=== PATIENT | female | born 1965 | race Caucasian/White ===

== ENCOUNTER 2018-02-23 03:39 | Emergency (ER) | payer BC ==
[~2018-02-23] VITALS: Ht 165.1 cm; Wt 71.7 kg
[~2018-02-23 03:39] MED LIST: CREON PO; CYCLOBENZAPRINE10 MG ORAL; GUAIFENESIN-CO118 M1 ORAL; LEVAQUIN750 MG ORAL; MEDROL DOSEPAK4 MG ORAL; NAPROXEN500 M2 ORAL; PERCOCET 5-3251 EACH ORAL; PREDNISONE20 MG ORAL; RANITIDINE HCL150 MG ORAL; VENTOLIN HFA18 GM INH
[2018-02-23 03:50] VITALS: BP 156/91
[2018-02-23] MEDS ORDERED: Norco 5mg/325mg tab ORAL ONE (04:00)
[2018-02-23] MEDS ORDERED: NORCO 5-325 TA1 EACH ORAL ×2 (04:05→09:59)
--- NOTE | 2018-02-23 04:05 | Emergency Room Report ---
History of Present Illness General Chief Complaint: Toothache Source: Patient Present Illness HPI 52F with three days right lower toothache, very severe tonight. She does have a dentist with whom she can follow. No trauma, no fever. Allergies: Coded Allergies: PROCHLORPERAZINE (Verified Allergy, Severe, Anaphylaxis, 01/22/13) VANCOMYCIN (Verified Allergy, Severe, LOSS OF HEARING IN 1 EAR, 01/22/13) Patient History Last Menstrual Period: n/a Nursing Documentation-[facility] Past Medical History: No History, Except For Hx Cardiac Problems: Yes - IRREGULAR HEARTBEAT, herniated disc Hx Hypertension: No Hx Pacemaker: No Hx Asthma: Yes Hx COPD: No Hx Diabetes: No Hx Cancer: No Hx Gastrointestinal Problems: Yes - CHRONIC PANCREATITIS Hx Dialysis: No Hx Neurological Problems: No Hx Cerebrovascular Accident: No Hx Seizures: No Review of Systems Constitutional: Reports: no symptoms Eye: Reports: no symptoms ENT: Reports: see HPI, mouth pain Respiratory: Reports: no symptoms Cardiovascular: Reports: no symptoms Gastrointestinal: Reports: no symptoms Genitourinary: Reports: no symptoms Musculoskeletal: Reports: no symptoms Skin: Reports: no symptoms Psychiatric: Reports: no symptoms Neurological: Reports: no symptoms Endocrine: Reports: no symptoms Hematologic/Lymphatic: Reports: no symptoms Allergic: Reports: no symptoms All Other Systems: negative except mentioned in HPI Physical Exam Vital Signs Date Time Temp Pulse Resp B/P (MAP) Pulse Ox O2 Delivery O2 Flow Rate FiO2 02/23/18 03:48 98.2 75 18 156/91 100 Room Air Sp02 EP Interpretation: reviewed, normal General Appearance: normal inspection, well appearing, no apparent distress, alert, GCS 15, non-toxic Head: normocephalic, atraumatic Eyes: bilateral eye normal inspection, bilateral eye PERRL, bilateral eye EOMI ENT: normal ENT inspection, hearing grossly normal, normal pharynx, no angioedema, normal voice, moist mucus membranes, other - TTP tooth 32 (crown) no erythema/swelling Neck: normal inspection, full range of motion, supple, no meningismus, no bony tend Respiratory: normal inspection, lungs clear, normal breath sounds, no rhonchi, no respiratory distress, no retraction, no accessory muscle use, no wheezing Cardiovascular #1: normal inspection, regular rate, rhythm, no edema Gastrointestinal: normal inspection, normal bowel sounds, non tender, soft, no mass, non-distended Musculoskeletal: gait/station normal, normal range of motion Neurologic: normal inspection, alert, oriented x3, responsive, motor strength/ tone normal Psychiatric: normal inspection, judgement/insight normal, memory normal Suicide Risk Assessment: Suicidal Ideation: No Had intent to initiate attempt: No Pt's plan for suicide attempt: No Has means to complete attempt: No Skin: normal inspection, normal color, no rash, warm/dry Medical Decision Making Diagnostic Impression: Primary Impression: Toothache ER Course norco exquisite tenderness to palpation; infection not the problem, probably dying root Last Vital Signs Date Time Temp Pulse Resp B/P (MAP) Pulse Ox O2 Delivery O2 Flow Rate FiO2 02/23/18 03:48 98.2 75 18 156/91 100 Room Air Disposition: HOME, SELF-CARE Condition: Improved Scripts Hydrocodone Bit/Acetaminophen 5-325* (NORCO 5-325*) 1 Each Tablet 1 TAB ORAL Q6H PRN for For Pain, #20 TAB 0 Refills Prov: Lawrence Cevallos M.D. 02/23/18 Patient Instructions: Dental Pain Lawrence Cevallos M.D. Feb 23, 2018 04:05
[2018-02-23 04:16] VITALS: BP 156/91
== END 2018-02-23 04:16 | disposition home or self-care (01) ==
LOC: EMR 04:11
DX: K08.89 Other specified disorders of teeth and supporting structures (principal); J45.909 Unspecified asthma, uncomplicated; Z88.1 Allergy status to other antibiotic agents; Z88.8 Allergy status to other drugs, medicaments and biological substances
CPT/HCPCS: 99282

== ENCOUNTER 2018-09-07 12:41 | Emergency (ER) | payer BC, OTHER ==
[~2018-09-07] VITALS: Ht 165.1 cm; Wt 73.5 kg
[~2018-09-07 12:41] MED LIST changes: +NORCO 5-325 TA1 EACH ORAL
--- NOTE | 2018-09-07 12:54 | NUR ---
ED Nurse Note: Pt came in from home c/o allergic rx hives since yesterday. Unknown trigger. AOx4, VSS. No SOB/swollen tongue/swollen throat. Will cont to monitor.
[2018-09-07 12:57] VITALS: BP 132/89
[2018-09-07] MEDS ORDERED: Dexamethasone 4mg/ml vial IM ONE (13:00)
--- NOTE | 2018-09-07 13:28 | Emergency Room Report ---
History of Present Illness General Chief Complaint: Skin Rash/Abscess Source: Patient Present Illness HPI 52-year-old female with history of chronic back pain here complaining of 1 day of severe pruritus all over her body that started in the left leg and now spreading rash. Patient has been taking Benadryl and also Ativan with minimal relief. Patient reports that she saw a spider next to her. Complains of pain at the site of the bite. Denies fever and chills. Also is requesting Sidnaw 10 mg for her chronic back pain as she is switching doctors and does not have pain management she also reports that she is been taking her 's Sidnaw's and her is there with her and complaining that her his Sidnaw was running out. Drug-seeking behavior is observed. Patient even asks that you want me to do coming back here and requests Sidnaw. Denies nausea vomiting, anaphylaxis, shortness of breath, chest pain, palpitation, dizziness, no other associated symptoms. Denies recent exposure to new allergens, animals, new food, or any new medication Allergies: Coded Allergies: PROCHLORPERAZINE (Verified Allergy, Severe, Anaphylaxis, 01/22/13) VANCOMYCIN (Verified Allergy, Severe, LOSS OF HEARING IN 1 EAR, 01/22/13) Patient History Past Medical History: see triage record Past Surgical History: unable to obtain Pertinent Family History: none Now: No Immunizations: UTD Reviewed Nursing Documentation: PMH: Agreed; PSxH: Agreed Nursing Documentation-PMH Past Medical History: No History, Except For Hx Cardiac Problems: Yes - IRREGULAR HEARTBEAT, herniated disc Hx Hypertension: No Hx Pacemaker: No Hx Asthma: Yes Hx COPD: No Hx Diabetes: No Hx Cancer: No Hx Gastrointestinal Problems: Yes - CHRONIC PANCREATITIS Hx Dialysis: No Hx Neurological Problems: No Hx Cerebrovascular Accident: No Hx Seizures: No Review of Systems All Other Systems: negative except mentioned in HPI Physical Exam Vital Signs Date Time Temp Pulse Resp B/P (MAP) Pulse Ox O2 Delivery O2 Flow Rate FiO2 09/07/18 12:44 98.1 88 18 143/93 (110) 98 Room Air Sp02 EP Interpretation: reviewed, normal General Appearance: normal inspection, well appearing, no apparent distress Head: normocephalic, atraumatic Eyes: bilateral eye normal inspection, bilateral eye PERRL ENT: normal ENT inspection, hearing grossly normal, normal pharynx Neck: normal inspection, full range of motion, supple, thyroid normal, no carotid bruits Respiratory: normal inspection, lungs clear, no respiratory distress, no wheezing Cardiovascular #1: normal inspection, regular rate, rhythm, no edema, no murmur , normal capillary refill Gastrointestinal: normal inspection, non tender Rectal: deferred Genitourinary: no CVA tenderness Musculoskeletal: normal inspection, back normal, digits/nails normal Neurologic: normal inspection, alert, oriented x3 Psychiatric: normal inspection, judgement/insight normal, memory normal Skin: warm/dry, rash - Insect bite inflamed and warm to touch left inner thigh annular to cardia on both legs and abdomen Lymphatic: normal inspection, no adenopathy, axilla node tender (R) Medical Decision Making PA Attestation All my diagnosis and treatment plans were reviewed ad discussed with my supervising physician Dr. Tony Diagnostic Impression: Primary Impression: Allergic reaction, urticaria Additional Impressions: Insect bite, infected Cellulitis ER Course 52-year-old female with history of chronic back pain here complaining of 1 day of severe pruritus all over her body that started in the left leg and now spreading rash. Patient has been taking Benadryl and also Ativan with minimal relief. Patient reports that she saw a spider next to her. Complains of pain at the site of the bite. Denies fever and chills. Also is requesting Sidnaw 10 mg for her chronic back pain as she is switching doctors and does not have pain management she also reports that she is been taking her 's Sidnaw's and her is there with her and complaining that her his Sidnaw was running out. Drug-seeking behavior is observed. Patient even asks that you want me to do coming back here and requests Sidnaw. Denies nausea vomiting, anaphylaxis, shortness of breath, chest pain, palpitation, dizziness, no other associated symptoms. Denies recent exposure to new allergens, animals, new food, or any new medication Ddx considered but are not limited to: Eczema, scabies, lice, infected insect bite, allergic urticaria, chronic back pain Vital signs: are WNL, pt. is afebrile H&PE are most consistent with: Allergic urticaria due to an infected insect bite , chronic back pain ORDERS: Dexamethasone 10 mg IM, prednisone, Keflex, hydrocortisone cream, Tylenol 3 ED INTERVENTIONS: Dexamethasone 10 mg IM DISCHARGE: At this time pt. is stable for d/c to home. Will provide printed patient care instructions, and any necessary prescriptions. Care plan and follow up instructions have been discussed with the patient prior to discharge. I told the patient that I will not be writing for Sidnaw as this is a chronic condition and she is asking for specific medication specific dosing and raising her voice when I say that we cannot write that however I will give her Tylenol 3 also her keeps intervening and yelling with her. She is to follow-up with a primary care provider and pain management and advised her not to take somebody else's medications Last Vital Signs Date Time Temp Pulse Resp B/P (MAP) Pulse Ox O2 Delivery O2 Flow Rate FiO2 09/07/18 12:57 98.1 89 18 132/89 100 Room Air Disposition: HOME, SELF-CARE Condition: Stable Scripts Acetaminophen With Codeine (T#3) (TYLENOL #3 TAB*) Y Tab 1 TAB ORAL Q8HR PRN for For Pain for 3 Days, #10 TAB Prov: David Schaeffer 09/07/18 Hydrocortisone/Aloe Vera 1%* (HYDROCORTISONE-ALOE 1% CREAM*) Y Cr 1 APPLIC TOPIC Q6H PRN for Itching, #30 GM Prov: David Schaeffer 09/07/18 Prednisone (Prednisone) 20 Mg Tablet 20 MG PO BID for 5 Days, #10 TAB Prov: David Schaeffer 09/07/18 Cephalexin* (KEFLEX*) 500 Mg Capsule 500 MG ORAL EVERY 6 HOURS for 7 Days, #28 CAP Prov: David Schaeffer 09/07/18 Referrals: NON PHYSICIAN (PCP) Patient Instructions: Allergies, [id number], Cellulitis, [id number], Insect Bite, [id number] Additional Instructions: Take medication as directed follow-up with a primary care provider for further assessment and allergy testing wash all clothes and bedding David Schaeffer Sep 07, 2018 13:28
[2018-09-07] MEDS ORDERED: CEPHALEXIN500 MG ORAL (13:29)
[2018-09-07] MEDS ORDERED: HYDROCORTISONE-30 GM TOPIC (13:29)
[2018-09-07] MEDS ORDERED: PREDNISONE20 M1 PO (13:29)
[2018-09-07] MEDS ORDERED: ACETAMINOPHEN-1 EAC1 ORAL (13:42)
[2018-09-07 13:47] VITALS: BP 132/85
--- NOTE | 2018-09-07 13:47 | NUR ---
ER DISCHARGE Patient is cleared to be discharged per PA, pt is aox4, on room air, with stable vital signs. pt was given dc and prescription instructions, pt was able to verbalize understanding, pt id band removed. pt is able to ambulate with steady gait. pt took all belongings a nd left with her family member.
== END 2018-09-07 13:47 | disposition home or self-care (01) ==
LOC: EMR 12:58
DX: T78.40XA Allergy, unspecified, initial encounter (principal); X58.XXXA Exposure to other specified factors, initial encounter; L50.9 Urticaria, unspecified; L03.90 Cellulitis, unspecified; S70.362A Insect bite (nonvenomous), left thigh, initial encounter; S80.862A Insect bite (nonvenomous), left lower leg, initial encounter; S80.861A Insect bite (nonvenomous), right lower leg, initial encounter; S30.861A Insect bite (nonvenomous) of abdominal wall, initial encounter; W57.XXXA Bitten or stung by nonvenomous insect and other nonvenomous arthropods, initial encounter; Y92.9 Unspecified place or not applicable; Z88.8 Allergy status to other drugs, medicaments and biological substances
CPT/HCPCS: 96372; 99283; J1100

== ENCOUNTER 2019-05-20 19:52 | Emergency (ER) | payer OTHER ==
[~2019-05-20] VITALS: Ht 162.6 cm; Wt 77.1 kg
[~2019-05-20 19:52] MED LIST changes: +ACETAMINOPHEN-1 EAC1 ORAL; +CEPHALEXIN500 MG ORAL; +HYDROCORTISONE-30 GM TOPIC; +PREDNISONE20 M1 PO
--- NOTE | 2019-05-20 19:59 | NUR ---
ED Nurse Note: PT WALKED IN TO ED ACCOMPANIED BY FAMILY C/O ABD PAIN AND BACK PAIN X2DAYS WITH HX CHRONIC PANCREATITS. PATIENT RATES PAIN 7/10 SHARP AND STABBING. PT BP IS ELEVATED BUT OTHERWISE VSS, NAD. ERMD AT BEDSIDE. WILL CONTINUE TO MONITOR PATIENT
--- NOTE | 2019-05-20 20:00 | NUR ---
ED Nurse Note: blood and urine collected and sent to lab.
[2019-05-20] MEDS ORDERED: Morphine Sulfate 4mg/ml Inj (IV USE ONLY) IVP ONE (20:15)
--- NOTE | 2019-05-20 20:53 | Emergency Room Report ---
History of Present Illness General Chief Complaint: Abdominal Pain Source: Patient Present Illness HPI 53-year-old female presents ED for evaluation of abdominal pain. Complaining of pain which started 2 days ago. Epigastric, sharp, 8 out of 10, radiating to the back. Notes nausea, denies vomiting. Denies chest pain. History of chronic pancreatitis. Denies alcohol or drug use. Denies fevers or chills. Denies chest pain. Denies diarrhea. No other aggravating relieving factors. Denies any other associated symptoms Allergies: Coded Allergies: PROCHLORPERAZINE (Verified Allergy, Severe, Anaphylaxis, 01/22/13) VANCOMYCIN (Verified Allergy, Severe, LOSS OF HEARING IN 1 EAR, 01/22/13) MORPHINE (Verified Allergy, Unknown, 05/20/19) Patient History Past Medical History: asthma, other - pancreatitis Past Surgical History: other - back surgery Pertinent Family History: none Social History: Denies: smoking, alcohol use, drug use Last Menstrual Period: 02/24/20 Now: No : 3 Para: 3 Immunizations: UTD Reviewed Nursing Documentation: PMH: Agreed; PSxH: Agreed Nursing Documentation-PMH Hx Cardiac Problems: Yes - IRREGULAR HEARTBEAT, herniated disc Hx Hypertension: No Hx Pacemaker: No Hx Asthma: Yes Hx COPD: No Hx Diabetes: No Hx Cancer: No Hx Gastrointestinal Problems: Yes - chronic pancreatitits Hx Dialysis: No Hx Neurological Problems: Yes - fibromyalgia Hx Cerebrovascular Accident: No Hx Seizures: No Review of Systems All Other Systems: negative except mentioned in HPI Physical Exam Vital Signs Date Time Temp Pulse Resp B/P (MAP) Pulse Ox O2 Delivery O2 Flow Rate FiO2 05/20/19 19:54 98.4 75 18 170/92 (118) 98 Room Air Sp02 EP Interpretation: reviewed, normal General Appearance: no apparent distress, alert, GCS 15, non-toxic Head: normocephalic, atraumatic Eyes: bilateral eye normal inspection, bilateral eye PERRL ENT: hearing grossly normal, normal pharynx, no angioedema, normal voice Neck: full range of motion, supple/symm/no masses Respiratory: chest non-tender, lungs clear, normal breath sounds, speaking full sentences Cardiovascular #1: regular rate, rhythm, no edema Cardiovascular #2: 2+ carotid (R), 2+ carotid (L), 2+ radial (R), 2+ radial (L) , 2+ dorsalis pedis (R), 2+ dorsalis pedis (L) Gastrointestinal: normal bowel sounds, soft, non-distended, no guarding, no rebound, tenderness - epigastric Rectal: deferred Genitourinary: normal inspection, no CVA tenderness Musculoskeletal: back normal, normal range of motion, gait/station normal, non- tender Neurologic: alert, motor strength/tone normal, oriented x3, sensory intact, responsive, speech normal Psychiatric: judgement/insight normal, memory normal, mood/affect normal, no suicidal/homicidal ideation Reflexes: 3+ bicep (R), 3+ bicep (L), 3+ tricep (R), 3+ tricep (L), 3+ knee (R) , 3+ knee (L) Skin: no rash Lymphatic: no adenopathy Medical Decision Making Diagnostic Impression: Primary Impression: Chronic pancreatitis Qualified Codes: K86.1 - Other chronic pancreatitis ER Course Hospital Course 53-year-old female presents to ED with abdominal pain. h/o pancreatitis Differential diagnoses include: BPH, cystitis, pyelonephritis, kidney stone Clinical course Patient placed on stretcher. panel monitor. After initial history and physical I ordered labs, IV fluids, UA, pain medication Labs - no leukocytosis, Hb/Hct stable. electrolytes ok. Lipase elevated Continues to have pain, vomiting. Requiring additional rounds of medication. Decision made to admit. Because of insurance patient will be transferred I feel this is a highly complex case requiring extensive working including EKG/ Rhythm strip, Xray/CT/US, Blood/urine lab work, repeat exams while in ED, and administration of strong opiates/narcotics for pain control, admission to hospital or close patient follow up. Diagnosis - chronic pancreatitis transferred in serious condition Labs Test 05/20/19 20:20 05/20/19 20:55 White Blood Count 6.6 K/UL (4.8-10.8) Red Blood Count 4.54 M/UL (4.20-5.40) Hemoglobin 13.6 G/DL (12.0-16.0) Hematocrit 41.1 % (37.0-47.0) Mean Corpuscular Volume 91 FL (80-99) Mean Corpuscular Hemoglobin 29.9 PG (27.0-31.0) Mean Corpuscular Hemoglobin Concent 33.0 G/DL (32.0-36.0) Red Cell Distribution Width 12.6 % (11.6-14.8) Platelet Count 215 K/UL (150-450) Mean Platelet Volume 7.8 FL (6.5-10.1) Neutrophils (%) (Auto) 50.9 % (45.0-75.0) Lymphocytes (%) (Auto) 38.5 % (20.0-45.0) Monocytes (%) (Auto) 7.4 % (1.0-10.0) Eosinophils (%) (Auto) 1.9 % (0.0-3.0) Basophils (%) (Auto) 1.4 % (0.0-2.0) Sodium Level 141 MMOL/L (136-145) Potassium Level 3.9 MMOL/L (3.5-5.1) Chloride Level 104 MMOL/L (98-107) Carbon Dioxide Level 30 MMOL/L (21-32) Anion Gap 7 mmol/L (5-15) Blood Urea Nitrogen 19 mg/dL (7-18) Creatinine 0.8 MG/DL (0.55-1.30) Estimat Glomerular Filtration Rate > 60 mL/min (>60) Glucose Level 99 MG/DL (74-106) Calcium Level 8.9 MG/DL (8.5-10.1) Total Bilirubin 0.3 MG/DL (0.2-1.0) Aspartate Amino Transf (AST/SGOT) 19 U/L (15-37) Alanine Aminotransferase (ALT/SGPT) 34 U/L (12-78) Alkaline Phosphatase 76 U/L (46-116) Total Protein 7.2 G/DL (6.4-8.2) Albumin 3.8 G/DL (3.4-5.0) Globulin 3.4 g/dL Albumin/Globulin Ratio 1.1 (1.0-2.7) Lipase 433 U/L (73-393) Urine Color Pale yellow Urine Appearance Clear Urine pH 7 (4.5-8.0) Urine Specific [place] 1.015 (1.005-1.035) Urine Protein Negative (NEGATIVE) Urine Glucose (UA) Negative (NEGATIVE) Urine Ketones Negative (NEGATIVE) Urine Blood 2+ (NEGATIVE) Urine Nitrite Negative (NEGATIVE) Urine Bilirubin Negative (NEGATIVE) Urine Urobilinogen Normal MG/DL (0.0-1.0) Urine Leukocyte Esterase Negative (NEGATIVE) Urine RBC 2-4 /HPF (0 - 2) Urine WBC 0-2 /HPF (0 - 2) Urine Squamous Epithelial Cells Few /LPF (NONE/OCC) Urine Bacteria Few /HPF (NONE) Last Vital Signs Date Time Temp Pulse Resp B/P (MAP) Pulse Ox O2 Delivery O2 Flow Rate FiO2 05/20/19 19:54 98.4 75 18 170/92 (118) 98 Room Air Status: improved Disposition: XFER T-[facility] Condition: Serious Naeem Tony MD May 20, 2019 20:53
--- NOTE | 2019-05-20 20:58 | NUR ---
ED Nurse Note: patient developed mild redness near chest area. per patient, patient is allergic to morphine. patient did not disclose this information prior to administration of the medication and had forgotten that she was allergic to the medication. ermd made aware, will carry out order
[2019-05-20 21:01] VITALS: BP 183/92
[2019-05-20 21:03] LABS: ANION GAP 7 mmol/L (5-15); BLOOD UREA NITROGEN 19 mg/dL (7-18); CALCIUM 8.9 MG/DL (8.5-10.1); CARBON DIOXIDE 30 MMOL/L (21-32); CHLORIDE 104 MMOL/L (98-107); CREATININE 0.8 MG/DL (0.55-1.30); POTASSIUM 3.9 MMOL/L (3.5-5.1); SODIUM 141 MMOL/L (136-145)
[2019-05-20 21:10] LABS: BASOPHILS % (AUTO) 1.4 % (0.0-2.0); EOSINOPHILS % (AUTO) 1.9 % (0.0-3.0); HEMATOCRIT 41.1 % (37.0-47.0); HEMOGLOBIN 13.6 G/DL (12.0-16.0); LYMPHOCYTES % (AUTO) 38.5 % (20.0-45.0); MEAN CORPUSCULAR VOLUME 91 FL (80-99); MONOCYTES % (AUTO) 7.4 % (1.0-10.0); NEUTROPHILS % (AUTO) 50.9 % (45.0-75.0); PLATELET COUNT 215 K/UL (150-450); RED BLOOD COUNT 4.54 M/UL (4.20-5.40); RED CELL DISTRIBUTION WIDTH 12.6 % (11.6-14.8); WHITE BLOOD COUNT 6.6 K/UL (4.8-10.8)
[2019-05-20] MEDS ORDERED: DiphenhydrAMINE 50mg/ml Inj IVP ONE (21:15)
[2019-05-20] MEDS ORDERED: Solu-MEDROL 125mg Inj IVP ONE (21:15)
[2019-05-20 21:19] LABS: ALANINE AMINOTRANSFERASE 34 U/L (12-78); ALBUMIN 3.8 G/DL (3.4-5.0); ALBUMIN/GLOBULIN RATIO 1.1 (1.0-2.7); ALKALINE PHOSPHATASE 76 U/L (46-116); ASPARTATE AMINO TRANSFERASE 19 U/L (15-37); BILIRUBIN,TOTAL 0.3 MG/DL (0.2-1.0)
[2019-05-20 21:24] LABS: APPEARANCE,URINE CLEAR; BILIRUBIN, URINE NEGATIVE (NEGATIVE); COLOR,URINE PALE YELLOW; GLUCOSE, URINE (UA) NEGATIVE (NEGATIVE); KETONES,URINE NEGATIVE (NEGATIVE); LEUKOCYTE ESTERASE ,URINE NEGATIVE (NEGATIVE); NITRITE,URINE NEGATIVE (NEGATIVE); PH,URINE 7 (4.5-8.0); PROTEIN,URINE NEGATIVE (NEGATIVE); UROBILINOGEN,URINE NORMAL MG/DL (0.0-1.0)
[2019-05-20] MEDS ORDERED: HYDROmorphone 1 MG, DiphenhydrAMINE 25 MG in NS 55 ML IV ONE (23:15)
[2019-05-20 23:42] VITALS: BP 153/89
--- NOTE | 2019-05-20 23:58 | NUR ---
ED Nurse Note: Gave report to Ester ARAMBULA at [facility]
--- NOTE | 2019-05-21 00:17 | NUR ---
ED Nurse Note: gave report to EMS Masha Riley RA [id number]
[2019-05-21 00:20] VITALS: BP 160/66
--- NOTE | 2019-05-21 00:20 | NUR ---
TRANSFER TO FLOOR: Patient transferred to [facility] via ambulance [id number] in stable condition as ordered, per dr. Jones. Report given to Ester ARAMBULA for [id number]. Belongings sent with patient
== END 2019-05-21 00:20 | disposition short-term general hospital (02) ==
LOC: EMR 21:45
DX: K86.1 Other chronic pancreatitis (principal); I49.9 Cardiac arrhythmia, unspecified; J45.909 Unspecified asthma, uncomplicated; M79.7 Fibromyalgia; Z88.5 Allergy status to narcotic agent; Z88.1 Allergy status to other antibiotic agents; Z88.8 Allergy status to other drugs, medicaments and biological substances
CPT/HCPCS: 36415; 80053; 81003; 83690; 85025; 96361; 96374; 96375; J1170; J1200; J2270; J2405; J2930; J7030; S0028; Z7502; 99285

== ENCOUNTER 2019-09-21 16:01 | Emergency (ER) | payer MEDICAID, OTHER ==
[~2019-09-21] VITALS: Ht 162.6 cm; Wt 74.8 kg
--- NOTE | 2019-09-21 16:17 | NUR ---
ED Nurse Note: Pt walked in [facility]rm[facility] home c/o upper back and neck pain. Pt reports the pain is shooting down to BLE. C/o numbness in LLE. Respirations even and unlabored on room air. Vitals stable as documented.
[2019-09-21 16:19] VITALS: BP 141/85
[2019-09-21] MEDS ORDERED: Methocarbamol 500mg tab ORAL ONE (17:00)
[2019-09-21] MEDS ORDERED: Ketorolac 30mg Inj IV ONE (17:00)
--- NOTE | 2019-09-21 17:02 | Emergency Room Report ---
History of Present Illness General Chief Complaint: Neck Pain Source: Patient Present Illness HPI Is a 53-year-old female presents after increased neck and back pain. Prior history of chronic pain as well as fibromyalgia. She reports having prior history of hyperthyroidism but is not currently on medications for this. Previously had been getting epidural injections due to discomfort. Denies any recent fever. Increased pain with movement for the past 2 to 3 days. Reports having some pain to both lower extremities. Allergies: Coded Allergies: PROCHLORPERAZINE (Verified Allergy, Severe, Anaphylaxis, 01/22/13) VANCOMYCIN (Verified Allergy, Severe, LOSS OF HEARING IN 1 EAR, 01/22/13) MORPHINE (Verified Allergy, Unknown, 05/20/19) COVID-19 Screening Contact w/high risk pt: No Recent Travel to affected area: No Experienced COVID-19 symptoms?: No COVID-19 Testing performed [employer] ANALYST: No Patient History Reviewed Nursing Documentation: PMH: Agreed; PSxH: Agreed Nursing Documentation-PMH Past Medical History: No History, Except For Hx Cardiac Problems: Yes - IRREGULAR HEARTBEAT, herniated disc Hx Hypertension: No Hx Pacemaker: No Hx Asthma: Yes Hx COPD: No Hx Diabetes: No Hx Cancer: No Hx Gastrointestinal Problems: Yes - chronic pancreatitits Hx Dialysis: No Hx Neurological Problems: Yes - fibromyalgia Hx Cerebrovascular Accident: No Hx Seizures: No Review of Systems All Other Systems: negative except mentioned in HPI Physical Exam Vital Signs Date Time Temp Pulse Resp B/P (MAP) Pulse Ox O2 Delivery O2 Flow Rate FiO2 09/21/19 16:12 97.7 90 18 145/81 (102) 99 Room Air Sp02 EP Interpretation: reviewed, normal General Appearance: normal inspection, well appearing, no apparent distress, alert, GCS 15 Head: atraumatic ENT: normal ENT inspection, hearing grossly normal, normal voice Neck: normal inspection, full range of motion, supple, no bony tend Respiratory: normal inspection, lungs clear, normal breath sounds, no respiratory distress, no retraction, no wheezing Cardiovascular #1: regular rate, rhythm, no edema Gastrointestinal: normal inspection, normal bowel sounds, non tender, soft, no guarding, no hernia Genitourinary: no CVA tenderness Musculoskeletal: normal inspection, back normal, normal range of motion Neurologic: alert, responsive, speech normal, normal inspection Psychiatric: normal inspection, judgement/insight normal, mood/affect normal Medical Decision Making Diagnostic Impression: Primary Impression: Neck pain Additional Impressions: Nerve root compression Chronic pancreatitis Back pain ER Course Patient presented for neck pain. Differential diagnosis include was not limited to herniated disc, hyperthyroidism, myofascial pain syndrome among others. Because of complexity of patient's case laboratory tests and imaging studies were ordered.CT imaging showed no acute traumatic injury with spine straightening which could represent patient positioning or muscle spasm.Appears to have some chronic discomfort to her neck and lower back area. Patient was advised to have follow-up with her prior surgery. She is currently being referred to pain management patient given prescription for oral pain medications as well as steroids. The patient is advised to follow up with primary care doctor in 1-2 days. Patient is advised to return if any worsening condition or if any changes in status that are concerning. This report is dictated with De Correspondent assistant pressman software which may occasionally lead to discrepancies related to use of this software. Labs Test 09/21/19 16:55 09/21/19 17:30 White Blood Count 6.7 K/UL (4.8-10.8) Red Blood Count 4.81 M/UL (4.20-5.40) Hemoglobin 14.3 G/DL (12.0-16.0) Hematocrit 44.0 % (37.0-47.0) Mean Corpuscular Volume 91 FL (80-99) Mean Corpuscular Hemoglobin 29.7 PG (27.0-31.0) Mean Corpuscular Hemoglobin Concent 32.5 G/DL (32.0-36.0) Red Cell Distribution Width 12.8 % (11.6-14.8) Platelet Count 211 K/UL (150-450) Mean Platelet Volume 7.4 FL (6.5-10.1) Neutrophils (%) (Auto) 60.7 % (45.0-75.0) Lymphocytes (%) (Auto) 29.2 % (20.0-45.0) Monocytes (%) (Auto) 7.5 % (1.0-10.0) Eosinophils (%) (Auto) 1.1 % (0.0-3.0) Basophils (%) (Auto) 1.5 % (0.0-2.0) Sodium Level 140 MMOL/L (136-145) Potassium Level 4.2 MMOL/L (3.5-5.1) Chloride Level 102 MMOL/L (98-107) Carbon Dioxide Level 32 MMOL/L (21-32) Anion Gap 6 mmol/L (5-15) Blood Urea Nitrogen 17 mg/dL (7-18) Creatinine 0.9 MG/DL (0.55-1.30) Estimat Glomerular Filtration Rate > 60 mL/min (>60) Glucose Level 102 MG/DL (74-106) Calcium Level 8.9 MG/DL (8.5-10.1) Phosphorus Level 3.4 MG/DL (2.5-4.9) Magnesium Level 2.2 MG/DL (1.8-2.4) Total Bilirubin 0.3 MG/DL (0.2-1.0) Aspartate Amino Transf (AST/SGOT) 27 U/L (15-37) Alanine Aminotransferase (ALT/SGPT) 56 U/L (12-78) Alkaline Phosphatase 82 U/L (46-116) Total Protein 7.4 G/DL (6.4-8.2) Albumin 4.1 G/DL (3.4-5.0) Globulin 3.3 g/dL Albumin/Globulin Ratio 1.2 (1.0-2.7) Thyroid Stimulating Hormone (TSH) 1.055 uiU/mL (0.358-3.740) Last Vital Signs Date Time Temp Pulse Resp B/P (MAP) Pulse Ox O2 Delivery O2 Flow Rate FiO2 09/21/19 16:19 97.7 74 18 141/85 99 Room Air Status: improved Disposition: HOME, SELF-CARE Condition: Stable Scripts Methylprednisolone (Methylprednisolone*) 4MG Dspk 4 MG ORAL DIRECTED for 6 Days, #21 EA 0 Refills Day 1: Two tablets before breakfast, one after lunch, one after dinner, and two at bedtime. If started late in the day, take all six tablets at once or divide into two or three doses, unless otherwise directed by prescriber. Day 2: One tablet before breakfast, one after lunch, one after dinner, and two at bedtime Day 3: One tablet before breakfast, one after lunch, one after dinner, and one at bedtime Day 4: One tablet before breakfast, one after lunch, and one at bedtime Day 5: One tablet before breakfast and one at bedtime Day 6: One tablet before breakfast Prov: Yovani Fernandez MD 09/21/19 Oxycodone/Acetaminophen 5-325* (PERCOCET 5-325 MG TABLET*) 1 Each Tablet 1 TAB ORAL EVERY 6 HOURS PRN for For Pain, #15 TAB 0 Refills Prov: Yovani Fernandez MD 09/21/19 Referrals: Jose Alfredo Vilchis MD (PCP) Yovani Fernandez MD Sep 21, 2019 17:02
--- NOTE | 2019-09-21 17:07 | NUR ---
ED Nurse Note: pt in radiology
[2019-09-21 17:11] LABS: BASOPHILS % (AUTO) 1.5 % (0.0-2.0); EOSINOPHILS % (AUTO) 1.1 % (0.0-3.0); HEMOGLOBIN 14.3 G/DL (12.0-16.0); LYMPHOCYTES % (AUTO) 29.2 % (20.0-45.0); MEAN CORPUSCULAR VOLUME 91 FL (80-99); MONOCYTES % (AUTO) 7.5 % (1.0-10.0); NEUTROPHILS % (AUTO) 60.7 % (45.0-75.0); PLATELET COUNT 211 K/UL (150-450); RED BLOOD COUNT 4.81 M/UL (4.20-5.40); RED CELL DISTRIBUTION WIDTH 12.8 % (11.6-14.8); WHITE BLOOD COUNT 6.7 K/UL (4.8-10.8)
[2019-09-21 17:18] LABS: ANION GAP 6 mmol/L (5-15); BLOOD UREA NITROGEN 17 mg/dL (7-18); CALCIUM 8.9 MG/DL (8.5-10.1); CARBON DIOXIDE 32 MMOL/L (21-32); CHLORIDE 102 MMOL/L (98-107); CREATININE 0.9 MG/DL (0.55-1.30); POTASSIUM 4.2 MMOL/L (3.5-5.1); SODIUM 140 MMOL/L (136-145)
--- NOTE | 2019-09-21 17:24 | Diagnostic Imaging Report ---
EXAM: CT Cervical Spine Without Intravenous Contrast CLINICAL HISTORY: PAIN TECHNIQUE: Axial computed tomography images of the cervical spine without intravenous contrast. CTDI is 8 mGy and DLP is 171 mGy-cm. One or more of the following dose reduction techniques were used: automated exposure control, adjustment of the mA and/or kV according to patient size, use of iterative reconstruction technique. Coronal and sagittal reformatted images were created and reviewed. Axial reformatted images were created and reviewed. COMPARISON: No relevant prior studies available. FINDINGS: Vertebrae: Spine straightening, which could represent patient positioning or muscle spasm. No acute fracture. Discs/spinal canal/neural foramina: No acute findings. No spinal canal stenosis. Soft tissues: Unremarkable. IMPRESSION: 1. No acute traumatic injury. 2. Spine straightening, which could represent patient positioning or muscle spasm. 3. Otherwise unremarkable study.
[2019-09-21 17:30] LABS: ALANINE AMINOTRANSFERASE 56 U/L (12-78); ALBUMIN 4.1 G/DL (3.4-5.0); ALBUMIN/GLOBULIN RATIO 1.2 (1.0-2.7); ALKALINE PHOSPHATASE 82 U/L (46-116); ASPARTATE AMINO TRANSFERASE 27 U/L (15-37); BILIRUBIN,TOTAL 0.3 MG/DL (0.2-1.0); PHOSPHORUS 3.4 MG/DL (2.5-4.9)
[2019-09-21 18:03] LABS: APPEARANCE,URINE CLEAR; BILIRUBIN, URINE NEGATIVE (NEGATIVE); COLOR,URINE PALE YELLOW; GLUCOSE, URINE (UA) NEGATIVE (NEGATIVE); KETONES,URINE NEGATIVE (NEGATIVE); LEUKOCYTE ESTERASE ,URINE NEGATIVE (NEGATIVE); NITRITE,URINE NEGATIVE (NEGATIVE); PH,URINE 6.5 (4.5-8.0); PROTEIN,URINE NEGATIVE (NEGATIVE); UROBILINOGEN,URINE NORMAL MG/DL (0.0-1.0)
[2019-09-21] MEDS ORDERED: Hydromorphone 0.5mg/0.5ml inj IVP ONE (18:15)
[2019-09-21] MEDS ORDERED: MEDROL DOSEPAK4 MG ORAL (18:17)
[2019-09-21] MEDS ORDERED: PERCOCET 5-3251 EACH ORAL (18:17)
[2019-09-21 19:07] VITALS: BP 137/79
--- NOTE | 2019-09-21 19:07 | NUR ---
ER DISCHARGE NOTE: Patient is cleared to be discharged per ERMD, pt is aox4, on room air, with stable vital signs. pt was given dc and prescription instructions, pt was able to verbalize understanding, pt id band and iv site removed without complications. pt is able to ambulate with steady gait. pt took all belongings.
== END 2019-09-21 19:07 | disposition home or self-care (01) ==
LOC: EMR 16:45
DX: M54.2 Cervicalgia (principal); M54.9 Dorsalgia, unspecified; K86.1 Other chronic pancreatitis; G54.9 Nerve root and plexus disorder, unspecified; M79.7 Fibromyalgia; Z88.6 Allergy status to analgesic agent; Z88.8 Allergy status to other drugs, medicaments and biological substances
CPT/HCPCS: 36415; 72125; 80053; 81001; 83735; 84100; 84443; 85025; 96365; 96375; J1170; J1885; Z7502; 99284